=== PATIENT | male | born 1990 ===

== ENCOUNTER → 2018-02-12 | Emergency (ER) | payer OTHER ==
[~2018-02-12] VITALS: Ht 167.6 cm; Wt 68.0 kg
== END | disposition home or self-care (01) ==
LOC: ER 13:17
DX: K52.9 Noninfective gastroenteritis and colitis, unspecified (principal)

== ENCOUNTER 2025-03-24 06:03 | Day surgery (SDC) | payer OTHER ==
[2025-03-20 13:10] VITALS: BP 110/76
[2025-03-20 14:37] LABS: CALCIUM 9.7 mg/dL (8.5-10.1); CREATININE SERUM 0.88 mg/dL (0.70-1.30); GFR 100.36; POTASSIUM 4.24 mEq/L (3.5-5.1)
[2025-03-20 16:39] LABS: PH,URINE 5.5 (5.0-8.0); URINE APPEARANCE Clear; URINE BACTERIA 2.4 uL (0.0-1933); URINE BILIRRUBIN Negative (NEGATIVE); URINE BLOOD Negative; URINE CAST 0.14 uL (0.0-1.40); URINE COLOR Yellow; URINE EPITHELIAL CELLS 1.2 uL (0.0-38.8); URINE GLUCOSE Negative (NEGATIVE); URINE KETONE Negative (NEGATIVE); URINE LEUKOCYTE Negative; URINE NITRATE Negative; URINE PROTEIN Negative (NEGATIVE); URINE RBC 0.4 uL (0.0-20.8); URINE UROBILINOGEN 0.2 E.U./dl; URINE WBC 1.7 uL (0.0-23.2)
[~2025-03-24] VITALS: Ht 167.6 cm; Wt 68.0 kg
[2025-03-24] MEDS ORDERED: DEXAMETHASONE SODIUM PHOSPHATE 4 MG/ML VIAL ONE (11:06)
== END 2025-03-24 15:35 | disposition home or self-care (01) ==
LOC: CIR.AMB 06:03
PROVIDERS: ATTEND Otolaryngology
DX: J38.1 Polyp of vocal cord and larynx (principal); J38.3 Other diseases of vocal cords